=== PATIENT | male | born 1950 | race Two or more races ===

== ENCOUNTER 2020-06-22 13:59 | Outpatient (CLI) | payer MEDICARE ==
[2020-06-22 15:53] LABS: BASOPHILS # (AUTO) 0.1 /CMM (0.0-0.2); EOSINOPHILS % (AUTO) 1.2 % (0.0-6.0); HEMATOCRIT 38 % (39-51); HEMOGLOBIN 12.4 g/dL (13.5-17.5); LYMPHOCYTES # (AUTO) 0.9 /CMM (0.8-4.8); LYMPHOCYTES % (AUTO) 11.4 % (20.0-44.0); MEAN CORPUSCULAR HGB CONC 32 g/dl (31.0-36.0); MEAN CORPUSCULAR VOLUME 85 fL (80-96); MONOCYTES # (AUTO) 0.5 /CMM (0.1-1.30); MONOCYTES % (AUTO) 6.3 % (2.0-12.0); NEUTROPHILS # (AUTO) 6.2 /CMM (1.8-8.9); NEUTROPHILS % (AUTO) 80.1 % (43.0-81.0); PLATELET COUNT (AUTO) 257 /CMM (150-450); RED BLOOD CELL COUNT(AUTO) 4.53 MIL/uL (4.5-6.0); WHITE BLOOD COUNT (AUTO) 7.7 K/uL (4.3-11.0)
[2020-06-22 16:01] LABS: ALANINE AMINOTRANSFERASE 15 U/L (12-78); ALBUMIN 3.3 g/dL (3.4-5.0); ALKALINE PHOSPHATASE 92 U/L (46-116); ASPARTATE AMINOTRANSFERASE 11 U/L (15-37); BILIRUBIN,TOTAL 0.3 mg/dL (0.2-1.0); CALCIUM, SERUM 7.8 mg/dL (8.5-10.1); CARBON DIOXIDE 23 mmol/L (21-32); CHLORIDE 102 mmol/L (98-107); GLUCOSE 81 mg/dL (74-106); MAGNESIUM 1.9 mg/dL (1.8-2.4); PHOSPHORUS 4.3 mg/dL (2.5-4.9); SODIUM SERUM 136 mmol/L (136-145); TOTAL PROTEIN, SERUM 7.2 g/dL (6.4-8.2); UREA NITROGEN, BLOOD 37 mg/dL (7-18)
== END 2020-06-22 23:59 | disposition home or self-care (01) ==
LOC: MSC 13:59
PROVIDERS: ATTEND Internal Medicine
DX: I13.0 Hypertensive heart and chronic kidney disease with heart failure and stage 1 through stage 4 chronic kidney disease, or unspecified chronic kidney disease (principal); E11.22 Type 2 diabetes mellitus with diabetic chronic kidney disease; N17.9 Acute kidney failure, unspecified; N18.9 Chronic kidney disease, unspecified; I50.9 Heart failure, unspecified; Z94.0 Kidney transplant status; Z79.4 Long term (current) use of insulin; Z79.84 Long term (current) use of oral hypoglycemic drugs; G47.00 Insomnia, unspecified; F32.9 Major depressive disorder, single episode, unspecified; K58.1 Irritable bowel syndrome with constipation; I73.9 Peripheral vascular disease, unspecified; E78.5 Hyperlipidemia, unspecified; F41.8 Other specified anxiety disorders; G62.9 Polyneuropathy, unspecified; G25.0 Essential tremor; G47.30 Sleep apnea, unspecified; K21.9 Gastro-esophageal reflux disease without esophagitis; Z79.899 Other long term (current) drug therapy
CPT/HCPCS: 36415; 71045; 80053; 83735; 84100; 85025; G0463

== ENCOUNTER 2020-07-13 13:50 | Outpatient (CLI) | payer MEDICAID, MEDICARE ==
[2020-07-13 15:09] LABS: BASOPHILS % (AUTO) 0.6 % (0.0-2.0); EOSINOPHILS % (AUTO) 1.4 % (0.0-6.0); HEMATOCRIT 38 % (39-51); HEMOGLOBIN 12.1 g/dL (13.5-17.5); LYMPHOCYTES % (AUTO) 14.4 % (20.0-44.0); MEAN CORPUSCULAR HGB CONC 32 g/dl (31.0-36.0); MEAN CORPUSCULAR VOLUME 86 fL (80-96); MONOCYTES # (AUTO) 0.5 /CMM (0.1-1.30); MONOCYTES % (AUTO) 6.8 % (2.0-12.0); NEUTROPHILS # (AUTO) 5.3 /CMM (1.8-8.9); NEUTROPHILS % (AUTO) 76.8 % (43.0-81.0); PLATELET COUNT (AUTO) 303 /CMM (150-450); RED BLOOD CELL COUNT(AUTO) 4.45 MIL/uL (4.5-6.0); WHITE BLOOD COUNT (AUTO) 6.9 K/uL (4.3-11.0)
[2020-07-13 15:47] LABS: C-REACTIVE PROTEIN 2.1 mg/dL (0.0-0.9)
[2020-07-13 16:25] LABS: ALANINE AMINOTRANSFERASE 12 U/L (12-78); ALBUMIN 3.2 g/dL (3.4-5.0); ALKALINE PHOSPHATASE 109 U/L (46-116); ASPARTATE AMINOTRANSFERASE 10 U/L (15-37); BILIRUBIN,TOTAL 0.3 mg/dL (0.2-1.0); CALCIUM, SERUM 8.6 mg/dL (8.5-10.1); CARBON DIOXIDE 22 mmol/L (21-32); CHLORIDE 102 mmol/L (98-107); CREATININE 2.7 mg/dL (0.6-1.3); GLUCOSE 155 mg/dL (74-106); POTASSIUM 5.3 mmol/L (3.5-5.1); SODIUM SERUM 139 mmol/L (136-145); TOTAL PROTEIN, SERUM 7.5 g/dL (6.4-8.2); UREA NITROGEN, BLOOD 62 mg/dL (7-18)
== END 2020-07-13 23:59 | disposition home or self-care (01) ==
LOC: MSC 13:50
PROVIDERS: ATTEND Internal Medicine
DX: R06.00 Dyspnea, unspecified (principal); E11.22 Type 2 diabetes mellitus with diabetic chronic kidney disease; I13.0 Hypertensive heart and chronic kidney disease with heart failure and stage 1 through stage 4 chronic kidney disease, or unspecified chronic kidney disease; N17.9 Acute kidney failure, unspecified; N18.9 Chronic kidney disease, unspecified; I50.9 Heart failure, unspecified; Z94.0 Kidney transplant status; Z79.4 Long term (current) use of insulin; Z79.84 Long term (current) use of oral hypoglycemic drugs; G47.00 Insomnia, unspecified; F32.9 Major depressive disorder, single episode, unspecified; K59.00 Constipation, unspecified; E11.40 Type 2 diabetes mellitus with diabetic neuropathy, unspecified; E78.5 Hyperlipidemia, unspecified; G25.0 Essential tremor
CPT/HCPCS: 36415; 80053; 83036; 85025; 85652; 86140; G0463

== ENCOUNTER 2020-08-13 08:44 | Outpatient (CLI) | payer MEDICARE ==
[2020-08-13 10:00] LABS: BASOPHILS % (AUTO) 0.5 % (0.0-2.0); EOSINOPHILS % (AUTO) 0.8 % (0.0-6.0); HEMATOCRIT 37 % (39-51); HEMOGLOBIN 11.9 g/dL (13.5-17.5); LYMPHOCYTES # (AUTO) 0.8 /CMM (0.8-4.8); LYMPHOCYTES % (AUTO) 16.2 % (20.0-44.0); MEAN CORPUSCULAR HGB CONC 32 g/dl (31.0-36.0); MEAN CORPUSCULAR VOLUME 83 fL (80-96); MONOCYTES # (AUTO) 0.5 /CMM (0.1-1.30); MONOCYTES % (AUTO) 8.7 % (2.0-12.0); NEUTROPHILS # (AUTO) 3.9 /CMM (1.8-8.9); NEUTROPHILS % (AUTO) 73.8 % (43.0-81.0); PLATELET COUNT (AUTO) 256 /CMM (150-450); RED BLOOD CELL COUNT(AUTO) 4.48 MIL/uL (4.5-6.0); WHITE BLOOD COUNT (AUTO) 5.2 K/uL (4.3-11.0)
[2020-08-13 10:32] LABS: ALANINE AMINOTRANSFERASE 12 U/L (12-78); ALBUMIN 2.8 g/dL (3.4-5.0); ALKALINE PHOSPHATASE 93 U/L (46-116); ASPARTATE AMINOTRANSFERASE 13 U/L (15-37); BILIRUBIN,TOTAL 0.3 mg/dL (0.2-1.0); CALCIUM, SERUM 8.1 mg/dL (8.5-10.1); CARBON DIOXIDE 19 mmol/L (21-32); CHLORIDE 102 mmol/L (98-107); CREATININE 2.8 mg/dL (0.6-1.3); GLUCOSE 182 mg/dL (74-106); POTASSIUM 4.8 mmol/L (3.5-5.1); SODIUM SERUM 135 mmol/L (136-145); TOTAL PROTEIN, SERUM 7.1 g/dL (6.4-8.2); UREA NITROGEN, BLOOD 65 mg/dL (7-18)
== END 2020-08-13 23:59 | disposition home or self-care (01) ==
LOC: LAB 08:44
PROVIDERS: ATTEND Internal Medicine
DX: E11.9 Type 2 diabetes mellitus without complications (principal); E78.5 Hyperlipidemia, unspecified; Z94.0 Kidney transplant status
CPT/HCPCS: 36415; 80053-TC; 80158; 85025-TC

== ENCOUNTER 2020-08-24 09:42 | Outpatient (CLI) | payer MEDICARE ==
[2020-08-24] MEDS ORDERED: PRED5TAB PO (14:00)
[2020-08-24] MEDS ORDERED: ALBU18HF2 INH (14:00)
[2020-08-24] MEDS ORDERED: LOSA25TA27 PO (14:00)
[2020-08-24] MEDS ORDERED: MYCO250C8 PO (14:00)
[2020-08-24] MEDS ORDERED: PRIM50TA27 PO (14:00)
[2020-08-24] MEDS ORDERED: TRAZ-252 PO (14:00)
[2020-08-24] MEDS ORDERED: FURO40TA5 PO (14:00)
[2020-08-24] MEDS ORDERED: NIFE60TA73 PO (14:00)
[2020-08-24] MEDS ORDERED: ROSU20TA32 PO (14:00)
[2020-08-24] MEDS ORDERED: CLOP75TA15 PO (14:00)
[2020-08-24] MEDS ORDERED: HYDR-4076 PO (14:00)
[2020-08-24] MEDS ORDERED: CLON1PAT13 TP (14:00)
[2020-08-24] MEDS ORDERED: INSU100I43 SQ (17:56)
[2020-08-24] MEDS ORDERED: INSU100I19 SQ (17:56)
== END 2020-08-24 23:59 | disposition home or self-care (01) ==
LOC: RAD 09:42 → MSC 23:59
PROVIDERS: ATTEND Internal Medicine
DX: R06.00 Dyspnea, unspecified (principal); J90 Pleural effusion, not elsewhere classified; N17.9 Acute kidney failure, unspecified; G47.00 Insomnia, unspecified; F32.9 Major depressive disorder, single episode, unspecified; F41.8 Other specified anxiety disorders; E11.40 Type 2 diabetes mellitus with diabetic neuropathy, unspecified; Z79.4 Long term (current) use of insulin; Z79.84 Long term (current) use of oral hypoglycemic drugs; I11.0 Hypertensive heart disease with heart failure; I50.9 Heart failure, unspecified; Z94.0 Kidney transplant status
CPT/HCPCS: 71046; 82962; G0463

== ENCOUNTER 2020-08-24 12:28 | Inpatient (IN) | payer MEDICARE, OTHER ==
[~2020-08-24] VITALS: Ht 160 cm; Wt 80.4 kg
--- NOTE | 2020-08-24 12:45 | NUR ---
PT C/O SOB X [address] PRINCE'S OFFICE AND WAS SENT HER FOR POSSIBLE ADMISSION. PT IS HYPERTENSIVE MACHINE SHOP SPECIALIST. GOWNED AND PLACED ON MONITOR. PT IS AAOX3 AWAITNG MD PERSAUD.
--- NOTE | 2020-08-24 12:45 | NUR ---
Note [place] in EDM - 08/24/20 at 1405 by MASHA BLOOD PRESSURE STILL ELEVATED ERMD AWARE. MEDICATED ORDERED. SEE EMAR.
--- NOTE | 2020-08-24 12:52 | NUR ---
DR GEORGES AT BEDSIDE FOR EVAL.
--- NOTE | 2020-08-24 13:09 | NUR ---
RADIOLOGY AT BEDSIDE FOR CHEST XRAY.
[2020-08-24 13:35] LABS: BASOPHILS # (AUTO) 0.1 /CMM (0.0-0.2); EOSINOPHILS % (AUTO) 4.2 % (0.0-6.0); HEMATOCRIT 36 % (39-51); HEMOGLOBIN 11.5 g/dL (13.5-17.5); LYMPHOCYTES # (AUTO) 1.3 /CMM (0.8-4.8); LYMPHOCYTES % (AUTO) 19.1 % (20.0-44.0); MEAN CORPUSCULAR HGB CONC 32 g/dl (31.0-36.0); MEAN CORPUSCULAR VOLUME 83 fL (80-96); MONOCYTES # (AUTO) 0.6 /CMM (0.1-1.30); MONOCYTES % (AUTO) 8.9 % (2.0-12.0); NEUTROPHILS # (AUTO) 4.4 /CMM (1.8-8.9); NEUTROPHILS % (AUTO) 66.8 % (43.0-81.0); PLATELET COUNT (AUTO) 285 /CMM (150-450); RED BLOOD CELL COUNT(AUTO) 4.39 MIL/uL (4.5-6.0); WHITE BLOOD COUNT (AUTO) 6.6 K/uL (4.3-11.0)
[2020-08-24] MEDS ORDERED: LABETALOL HCL IV 100MG VIAL ONE (13:56)
[2020-08-24] MEDS ORDERED: MYCO250C8 PO (14:00)
[2020-08-24] MEDS ORDERED: LABETALOL HCL IV 100MG VIAL IV ONE (14:00)
[2020-08-24] MEDS ORDERED: CLON1PAT13 TP (14:00)
[2020-08-24] MEDS ORDERED: LOSA25TA27 PO (14:00)
[2020-08-24] MEDS ORDERED: ROSU20TA32 PO (14:00)
[2020-08-24] MEDS ORDERED: PRIM50TA27 PO (14:00)
[2020-08-24] MEDS ORDERED: ALBU18HF2 INH (14:00)
[2020-08-24] MEDS ORDERED: FURO40TA5 PO (14:00)
[2020-08-24] MEDS ORDERED: CLOP75TA15 PO (14:00)
[2020-08-24] MEDS ORDERED: TRAZ-252 PO (14:00)
[2020-08-24] MEDS ORDERED: PRED5TAB PO (14:00)
[2020-08-24] MEDS ORDERED: NIFE60TA73 PO (14:00)
[2020-08-24] MEDS ORDERED: HYDR-4076 PO (14:00)
--- NOTE | 2020-08-24 14:02 | NUR ---
BLOOD PRESSURE STILL ELEVATED ERMD AWARE. MEDICATED ORDERED. SEE EMAR.
[2020-08-24 14:16] LABS: CALCIUM, SERUM 8.1 mg/dL (8.5-10.1); CARBON DIOXIDE 24 mmol/L (21-32); CHLORIDE 102 mmol/L (98-107); CREATININE 2.4 mg/dL (0.6-1.3); GLUCOSE 127 mg/dL (74-106); POTASSIUM 5.5 mmol/L (3.5-5.1); SODIUM SERUM 137 mmol/L (136-145); UREA NITROGEN, BLOOD 45 mg/dL (7-18)
--- NOTE | 2020-08-24 14:30 | NUR ---
CALLED DR. BOO FOR ADMISSION.
[2020-08-24 14:31] LABS: B-TYPE NATRIURETIC PEPTIDE 1663 PG/ML (0-125)
[2020-08-24] MEDS ORDERED: FUROSEMIDE 40 MG/4 ML VIAL ONE (14:57)
[2020-08-24] MEDS ORDERED: FUROSEMIDE 40 MG/4 ML VIAL IV ONE (15:00)
[2020-08-24] MEDS ORDERED: ACETAMINOPHEN 325 MG TABLET PO PRN (15:00)
[2020-08-24] MEDS ORDERED: MAG HYDROX/AL HYDROX/SIMETH 30 ML UDC PO PRN (15:00)
[2020-08-24] MEDS ORDERED: ONDANSETRON HCL/PF 4 MG/2 ML VIAL IVP PRN (15:00)
[2020-08-24] MEDS ORDERED: Z GUARD REMEDY 2 OZ OINT TP PRN (15:00)
[2020-08-24] MEDS ORDERED: MAGNESIUM HYDROXIDE 30 ML UDC PO PRN (15:00)
--- NOTE | 2020-08-24 15:01 | NUR ---
CALLED NURSING SUP FOR TELE BED.
[2020-08-24 15:36] LABS: ALBUMIN 2.9 g/dL (3.4-5.0); BILIRUBIN,DIRECT 0.1 mg/dL (0.0-0.2); BILIRUBIN,TOTAL 0.2 mg/dL (0.2-1.0); TOTAL PROTEIN, SERUM 7.5 g/dL (6.4-8.2)
--- NOTE | 2020-08-24 15:42 | NUR ---
RAPID COVID RESULT=NEGATIVE
--- NOTE | 2020-08-24 15:52 | NUR ---
REPORT GIVEN TO ALEX. PT AWAITING TRANSFER TO FLOOR.
--- NOTE | 2020-08-24 16:26 | NUR ---
RECEIVED PATIENT FROM ER. NO ACUTE DISTRESS NOTED. PATIENT ALERT & ORIENTED X4. NO COMPLAINTS OF PAIN AT THIS TIME. PATIENT ON ROOM AIR, SATURATING WELL, BREATHING EVEN AND UNLABORED. PATIENT ON EDITING CLERK, NORMAL SINUS RHYTHM NOTED WITH HEART RATE IN 80S. PATIENT RIGHT ANTECUBITAL IV ACCESS INTACT, PATENT, FLUSHED WELL. PATIENT SAFETY MEASURES MAINTAINED. CALL LIGHT WITHIN REACH. WILL CONTINUE TO MONITOR. ADMITTING VITAL SIGNS- TEMPERATURE OF 97.4, HEART RATE 87, RESPIRATIONS 20, O2 SATURATION 96%, 190/95 BLOOD PRESSURE. PATIENT BLOOD PRESSURE IN 180S-190S IN ER. DOCTOR ORDERED SCHEDULED BUMEX AND HYDRALAZINE. ADMINISTERED ORDERED. WILL CONTINUE TO MONITOR.
[2020-08-24] MEDS: BUMETANIDE INJ 0.25 MG/ML VIAL IV SCH (16:29)
[2020-08-24] MEDS: hydrALAZINE HCL 25 MG TABLET PO SCH (16:30)
[2020-08-24] MEDS ORDERED: ALBUTEROL FS 2.5 MG/0.5 ML VIAL.NEB NEB PRN (16:30)
[2020-08-24] MEDS ORDERED: PRIMIDONE 50 MG TABLET PO SCH (17:00)
[2020-08-24] MEDS ORDERED: INSU100I43 SQ (17:56)
[2020-08-24] MEDS ORDERED: INSU100I19 SQ (17:56)
[2020-08-24] MEDS ORDERED: DEXTROSE 50%-WATER 50 ML DISP.SYRIN IV PRN (18:00)
[2020-08-24] MEDS: BLOOD SUGAR DIAGNOSTIC 1 EACH STRIP VI SCH ×2 (18:06→22:13)
[2020-08-24] MEDS: INSULIN REGULAR, HUMAN 100 UNIT/ML 3 ML VIAL SQ PRN (18:09)
[2020-08-24] MEDS ORDERED: MYCOPHENOLATE MOFETIL 250 MG CAPSULE PO SCH (18:30)
--- NOTE | 2020-08-24 18:51 | NUR ---
PT LYING IN BED. NO SIGNS OF DISTRESS, NO SOB, NO PAIN. NO COMPLAINTS. ALL SAFETY PRECAUTIONS PER HOSPITAL POLICY IMPLEMENTED. ALL MEDS GIVEN PER ORDERS. PT VERBALIZED UNDERSTANDING CHF MANAGEMENT. IV PATENT, FLUSHED, DRESSING INTACT, NO REDNESS OR SWELLING. WILL ENDORSE PLAN TO PM RN.
[2020-08-24 20:00] VITALS: BP 138/72
[2020-08-24] MEDS: TRAZODONE 50 MG TABLET PO SCH (21:39)
[2020-08-24] MEDS: ATORVASTATIN 10 MG TABLET PO SCH (21:39)
[2020-08-24] MEDS: MYCOPHENOLATE MOFETIL 250 MG CAPSULE PO SCH (21:39)
[2020-08-24] MEDS: *INSULIN REGULAR(HUMULIN R)HUM 100 UNIT/ML VIAL SQ PRN (21:59)
[2020-08-24] MEDS ORDERED: CLONIDINE HCL 0.1 MG TABLET PO PRN (22:30)
[2020-08-25] VITALS: BP 138/72
--- NOTE | 2020-08-25 03:36 | NUR ---
RN notes Sitting at the side of bed with slight shortness of breath, on room air with saturation of 96-98%. Alert and oriented, verbally able to communicate needs. Patient was anxious as his medication list is not complete. Blood pressure was high at 189/78, Called Md, spoke with Dr. Steele and obtained order for lantus 25 units and clonidine 0.1mg x 1. No complaint of pain or distress. Needs attended, medication given. Kept clean and dry. Will endorse to next shift for continuity of care.
[2020-08-25 04:00] VITALS: BP 169/85
[2020-08-25 06:32] LABS: BASOPHILS # (AUTO) 0.1 /CMM (0.0-0.2); BASOPHILS % (AUTO) 1.1 % (0.0-2.0); EOSINOPHILS % (AUTO) 3.7 % (0.0-6.0); HEMATOCRIT 35 % (39-51); HEMOGLOBIN 11.5 g/dL (13.5-17.5); LYMPHOCYTES # (AUTO) 1.4 /CMM (0.8-4.8); LYMPHOCYTES % (AUTO) 21.2 % (20.0-44.0); MEAN CORPUSCULAR HGB CONC 33 g/dl (31.0-36.0); MEAN CORPUSCULAR VOLUME 82 fL (80-96); MONOCYTES # (AUTO) 0.7 /CMM (0.1-1.30); MONOCYTES % (AUTO) 10.1 % (2.0-12.0); NEUTROPHILS # (AUTO) 4.2 /CMM (1.8-8.9); NEUTROPHILS % (AUTO) 63.9 % (43.0-81.0); PLATELET COUNT (AUTO) 282 /CMM (150-450); RED BLOOD CELL COUNT(AUTO) 4.34 MIL/uL (4.5-6.0); WHITE BLOOD COUNT (AUTO) 6.6 K/uL (4.3-11.0)
--- NOTE | 2020-08-25 07:15 | NUR ---
PT LYING IN BED WITH HOB ELEVATED. RESPIRATIONS EVEN AND UNLABORED. NO SOB, NO CHEST PAIN, NO COMPLAINTS. SKIN WARM AND FLUSHED. ALERT AND ORIENTED X4. IV FLUSHED AND PATENT. DRESSING DRY AND INTACT. NON SLIP SOCKS ON. ALL SAFETY PRECAUTIONS PER HOSPITAL POLICY IMPLEMENTED. WILL MONITOR BP AND URINE OUTPUT, EDEMA, AND BREATH SOUNDS THROUGHOUT DAY.
[2020-08-25 07:22] LABS: CHOLESTEROL 173 mg/dL (<200); HDL CHOLESTEROL 59 mg/dL (40-60); LDL 92 mg/dL (0-99); TRIGLYCERIDES 124 mg/dL (30-150)
[2020-08-25 07:56] LABS: ALANINE AMINOTRANSFERASE 11 U/L (12-78); ALBUMIN 2.7 g/dL (3.4-5.0); ALKALINE PHOSPHATASE 91 U/L (46-116); ASPARTATE AMINOTRANSFERASE 13 U/L (15-37); BILIRUBIN,TOTAL 0.3 mg/dL (0.2-1.0); CALCIUM, SERUM 7.8 mg/dL (8.5-10.1); CARBON DIOXIDE 19 mmol/L (21-32); CHLORIDE 100 mmol/L (98-107); CREATININE 2.2 mg/dL (0.6-1.3); GLUCOSE 99 mg/dL (74-106); POTASSIUM 4.3 mmol/L (3.5-5.1); SODIUM SERUM 135 mmol/L (136-145); TOTAL PROTEIN, SERUM 7.3 g/dL (6.4-8.2); UREA NITROGEN, BLOOD 44 mg/dL (7-18)
[2020-08-25 08:00] VITALS: BP_SYST 192; BP_SYST 194; BP_DIAS 83; BP_DIAS 94
[2020-08-25] MEDS: BLOOD SUGAR DIAGNOSTIC 1 EACH STRIP VI SCH ×4 (08:10→21:30)
[2020-08-25] MEDS: MYCOPHENOLATE MOFETIL 250 MG CAPSULE PO SCH ×2 (08:25→21:28)
[2020-08-25] MEDS: CLOPIDOGREL BISULFATE 75 MG TABLET PO SCH (08:27)
[2020-08-25] MEDS: hydrALAZINE HCL 25 MG TABLET PO SCH ×3 (08:28→16:32)
[2020-08-25] MEDS: BUMETANIDE INJ 0.25 MG/ML VIAL IV SCH (08:28)
[2020-08-25] MEDS ORDERED: LOSARTAN POTASSIUM 25 MG TABLET PO SCH (09:00)
[2020-08-25] MEDS ORDERED: CLONIDINE HCL 0.2MG/24H PTWK 1 EA PATCH TD SCH (09:00)
[2020-08-25] MEDS: CITALOPRAM HYDROBROMIDE 20 MG TABLET PO SCH (09:03)
[2020-08-25] MEDS: predniSONE 5 MG TABLET PO SCH (09:04)
[2020-08-25] MEDS: ATENOLOL 50 MG TABLET PO SCH (09:04)
--- NOTE | 2020-08-25 10:20 | NUR ---
PT REFUSED TO GIVE CYCLOSPORINE HOME MED TO PHARMACY HE WANTS TO KEEP IT IN HIS DRAWERS WITH OTHER BELONGINGS. PT VERBALIZED WANTING TO USE THE PHARMACY PROVIDED CYCLOSPORINE. Addendum: 08/25/20 at 1056 by ALEX JOSHI RN 100MG CYCLOSPORINE, 23 COUNT IN PATIENT BELONGING. REFUSED TO HAND OVER TO PHARMACY FOR DISPENSING. REQUESTS TO KEEP USING PHARMACY PROVIDED CYCLOSPORINE.
[2020-08-25] MEDS: FUROSEMIDE 100 MG/10 ML VIAL IV SCH ×3 (10:40→17:34)
[2020-08-25] MEDS: NITROGLYCERIN 30 GM TUBE TP SCH ×2 (11:37→23:19)
[2020-08-25 12:00] VITALS: BP 194/83
[2020-08-25] MEDS: INSULIN REGULAR, HUMAN 100 UNIT/ML 3 ML VIAL SQ PRN (12:21)
--- NOTE | 2020-08-25 14:31 | NUR ---
BP 159/72. WILL CONTINUE TO MONITOR PT RESPONSE TO BP MEDS AND LASIX AND REPORT TO DR NEEDED.
[2020-08-25 16:00] VITALS: BP 156/78
--- NOTE | 2020-08-25 18:15 | NUR ---
PATIENT REPORTED WATERY STOOL 2X 2 HOURS APART. INFORMED WE WILL MONITOR.
--- NOTE | 2020-08-25 18:42 | NUR ---
RN CLOSING NOTE Patient in bed awake. Calm and relaxed. No signs of distress, On room air tolerating well O2 sat 97%. Patient is AO x4 no co pain or discomfort. Tele monitor reading SR 65. Patient has RAC #20 intact and patent. Blood sugar within normal limits. Vital signs blood pressure managed. No co of SOB or . Activity tolerated well. All due meds given no signs of adverse reaction to medications. Safety measures maintained. Bed locked and on lowest position. Will endorse to sales recruitment specialist nurse for laura.
--- NOTE | 2020-08-25 19:28 | NUR ---
LANDING MAN: RECEIVED PATIENT Patient is awake, sitting up in bed. On room air, denies shortness of breath. Sinus rhythm in the Tele monitor. Patient has medication GENGRAF at bedside, per ADITYA Rascon patient refused to endorse medication to the Pharmacy, patient is A/O x4, stated GENGRAF medication is very expensive and insisted to keep it by himself while in the hosp. Maintained safety.
[2020-08-25 20:19] VITALS: BP 159/85
--- NOTE | 2020-08-25 20:19 | NUR ---
VS Entered VS by mistake under ADITYA Durán account.
[2020-08-25] MEDS: *INSULIN REGULAR(HUMULIN R)HUM 100 UNIT/ML VIAL SQ PRN (21:13)
[2020-08-25] MEDS: ATORVASTATIN 10 MG TABLET PO SCH (21:21)
[2020-08-25] MEDS: NIFEdipine XL (30MG) 30 MG TAB PO SCH (21:23)
[2020-08-25] MEDS: TRAZODONE 50 MG TABLET PO SCH (22:00)
[2020-08-25] MEDS: INSULIN GLARGINE, 100 UNIT/ML CARTRIDGE SQ SCH (23:31)
--- NOTE | 2020-08-26 00:03 | NUR ---
REFUSED TRAZODONE Patient refused Trazodone for sleep, per patient does not help. Requested Ativan instead, per patient he's taking at home for sleep and works better. Notified AMRIT Canela with new orders placed.
[2020-08-26 00:07] VITALS: BP 154/79
[2020-08-26] MEDS: LORAZEPAM 0.5 MG TABLET PO PRN ×2 (00:18→21:27)
[2020-08-26 04:31] VITALS: BP 154/56
--- NOTE | 2020-08-26 06:25 | NUR ---
CREAM BEATER: END OF SHIFT REPORT Patient in bed, slept well with PRN Ativan. Sinus Mahad in the Tele monitor. On room air, denies shortness of breath. Independent with ADL's, denies pain, no other complaints. Plan for cont. hosp. if still dyspneic per Cardio plan Lexiscan on Mon. Will endorse to oncoming RN.
--- NOTE | 2020-08-26 07:15 | NUR ---
RN OPENING NOTE Received patient awake in bed appears calm and relaxed no signs of distress. On room air tolerating well. AO X4 able to communicate needs verbally. Tele reading SB 50-60s. Patient ambulatory. R AC #20 flushes well. Bilateral lower extremities edema noted no co pain. Safety measures maintained. Call light within reach. Bed locked and on lowest position. Will cont to monitor.
[2020-08-26 07:17] LABS: BASOPHILS % (AUTO) 0.7 % (0.0-2.0); EOSINOPHILS % (AUTO) 3.3 % (0.0-6.0); HEMATOCRIT 34 % (39-51); HEMOGLOBIN 11.1 g/dL (13.5-17.5); LYMPHOCYTES # (AUTO) 1.8 /CMM (0.8-4.8); LYMPHOCYTES % (AUTO) 28.2 % (20.0-44.0); MEAN CORPUSCULAR HGB CONC 32 g/dl (31.0-36.0); MEAN CORPUSCULAR VOLUME 81 fL (80-96); MONOCYTES # (AUTO) 0.7 /CMM (0.1-1.30); MONOCYTES % (AUTO) 11.7 % (2.0-12.0); NEUTROPHILS # (AUTO) 3.6 /CMM (1.8-8.9); NEUTROPHILS % (AUTO) 56.1 % (43.0-81.0); PLATELET COUNT (AUTO) 277 /CMM (150-450); RED BLOOD CELL COUNT(AUTO) 4.27 MIL/uL (4.5-6.0); WHITE BLOOD COUNT (AUTO) 6.4 K/uL (4.3-11.0)
[2020-08-26 08:00] VITALS: BP 106/53
[2020-08-26] MEDS: BLOOD SUGAR DIAGNOSTIC 1 EACH STRIP VI SCH ×4 (08:01→21:17)
[2020-08-26] MEDS: INSULIN REGULAR, HUMAN 100 UNIT/ML 3 ML VIAL SQ PRN ×4 (08:02→21:22)
[2020-08-26 08:37] LABS: ALANINE AMINOTRANSFERASE 14 U/L (12-78); ALBUMIN 2.5 g/dL (3.4-5.0); ALKALINE PHOSPHATASE 81 U/L (46-116); ASPARTATE AMINOTRANSFERASE 13 U/L (15-37); BILIRUBIN,TOTAL 0.3 mg/dL (0.2-1.0); CALCIUM, SERUM 7.2 mg/dL (8.5-10.1); CARBON DIOXIDE 24 mmol/L (21-32); CHLORIDE 98 mmol/L (98-107); CREATININE 2.6 mg/dL (0.6-1.3); GLUCOSE 174 mg/dL (74-106); MAGNESIUM 1.6 mg/dL (1.8-2.4); PHOSPHORUS 5.6 mg/dL (2.5-4.9); POTASSIUM 3.7 mmol/L (3.5-5.1); SODIUM SERUM 134 mmol/L (136-145); TOTAL PROTEIN, SERUM 6.5 g/dL (6.4-8.2); UREA NITROGEN, BLOOD 54 mg/dL (7-18)
[2020-08-26] MEDS: hydrALAZINE HCL 25 MG TABLET PO SCH ×3 (09:21→17:00)
[2020-08-26] MEDS: ATENOLOL 50 MG TABLET PO SCH (09:22)
[2020-08-26] MEDS: CITALOPRAM HYDROBROMIDE 20 MG TABLET PO SCH (09:22)
[2020-08-26] MEDS: NIFEdipine XL (30MG) 30 MG TAB PO SCH ×2 (09:22→17:15)
[2020-08-26] MEDS: CLOPIDOGREL BISULFATE 75 MG TABLET PO SCH (09:26)
[2020-08-26] MEDS: NITROGLYCERIN 30 GM TUBE TP SCH ×2 (09:27→21:24)
--- NOTE | 2020-08-26 09:30 | NUR ---
CONSENT SIGNED FOR BESSY TOMORROW. EXPLAINED NPO AFTER MIDNIGHT. NO COFFEE, TEA, CHOCOLATE, DECAF AFTER 6PM. PATIENT UNDERSTOOD.
[2020-08-26] MEDS: predniSONE 5 MG TABLET PO SCH (09:32)
[2020-08-26] MEDS: MYCOPHENOLATE MOFETIL 250 MG CAPSULE PO SCH ×2 (09:33→21:23)
--- NOTE | 2020-08-26 10:30 | NUR ---
PHARMACY CALLED REG PATIENT'S MAGNESIUM LEVEL. PER DR. BOO DO NOT SUPPLEMENT DUE TO KIDNEY ISSUE.
[2020-08-26 16:00] VITALS: BP 122/59
--- NOTE | 2020-08-26 17:37 | NUR ---
HOLD HYDRALAZINE 100MG FOR DECREASED HR 54 BPM.
--- NOTE | 2020-08-26 18:28 | NUR ---
[facility] CALLED TO INFORM ABOUT PLATELET FUNCTION TEST. [address] BOO WITH NO NEW ORDER AT THIS TIME.
--- NOTE | 2020-08-26 18:58 | NUR ---
RN CLOSING NOTE Patient asleep in bed appears calm and relaxed no signs of distress. On room air tolerating well no co sob or . AO X4 able to communicate needs verbally. Tele reading SR 60s. R AC #20 flushes well. NPO after midnight. No coffee, tea, chocolate or decaf after 6pm. Safety measures maintained. Call light within reach. Bed locked and on lowest position. Will endorse to overnight cashier nurse.
--- NOTE | 2020-08-26 19:30 | NUR ---
RN OPENING NOTE, Patient awake in bed a/o x4 able to verbalize needs and concerns, at room air breathing even and unlabored, no s/s of respiratory distress or any pain/discomfort, SR 70s on tele monitor at this time, R AC #20 patent and intatc, will be NPO after midnight for lexican tomorrow morning , discussed with patient and verbalized understanding as well as no intake of coffee, tea, decaf, or chocolate, safety measures maintained, Call light within reach, Bed locked and on lowest position, will continue to monitor closely.
[2020-08-26 20:00] VITALS: BP 122/63
[2020-08-26] MEDS: INSULIN GLARGINE, 100 UNIT/ML CARTRIDGE SQ SCH (21:20)
[2020-08-26] MEDS: ATORVASTATIN 10 MG TABLET PO SCH (21:24)
[2020-08-26] MEDS: QUETIAPINE FUMARATE 25 MG TABLET PO SCH (21:24)
[2020-08-26] MEDS: TRAZODONE 50 MG TABLET PO SCH (21:27)
--- NOTE | 2020-08-27 00:33 | NUR ---
MEDSURG RN NOTE ENDORSED PT TO NICLOS IN STABLE CONDITION. PT IN BED ASLEEP. BREATHING EVEN AND UNLABORED. NO SOB OR ACUTE DISTRESS NOTED. SRX2 UP. BED IN LOWEST POSITION. CALL LIGHT WITHIN REACH. ALL NEEDS RENDERED.
[2020-08-27] MEDS: QUETIAPINE FUMARATE 25 MG TABLET PO SCH (01:39)
--- NOTE | 2020-08-27 01:39 | NUR ---
MARIELA MISDOSED AT 2230; DOSE WAS ALREADY ADMINISTERED EARLIER AT 2130. VERIFIED THROUGH PREVIOUS NURSE CHIP BURGESS .
[2020-08-27 04:00] VITALS: BP 104/56
[2020-08-27 06:38] LABS: BASOPHILS # (AUTO) 0.1 /CMM (0.0-0.2); BASOPHILS % (AUTO) 0.9 % (0.0-2.0); EOSINOPHILS % (AUTO) 2.8 % (0.0-6.0); HEMATOCRIT 32 % (39-51); HEMOGLOBIN 10.4 g/dL (13.5-17.5); LYMPHOCYTES # (AUTO) 1.9 /CMM (0.8-4.8); MEAN CORPUSCULAR HGB CONC 32 g/dl (31.0-36.0); MEAN CORPUSCULAR VOLUME 82 fL (80-96); MONOCYTES # (AUTO) 0.6 /CMM (0.1-1.30); MONOCYTES % (AUTO) 9.9 % (2.0-12.0); NEUTROPHILS # (AUTO) 3.4 /CMM (1.8-8.9); NEUTROPHILS % (AUTO) 55.4 % (43.0-81.0); PLATELET COUNT (AUTO) 274 /CMM (150-450); RED BLOOD CELL COUNT(AUTO) 3.95 MIL/uL (4.5-6.0); WHITE BLOOD COUNT (AUTO) 6.2 K/uL (4.3-11.0)
--- NOTE | 2020-08-27 07:03 | NUR ---
ANA RN PM CLOSING NOTE PT IN STABLE CONDITION. PT IN BED WITH EYES CLOSED. PER EARLIER THIS AM AROUND 4 AM PT HAS BEEN NPO SINCE MIDNIGHT SCHEDIULED FOR LEXISCAN TODAY WITH DR. DAVEY. BREATHING EVEN AND UNLABORED. NO SOB OR ACUTE DISTRESS NOTED. SRX2 UP. BED IN LOWEST POSITION. CALL LIGHT WITHIN REACH.
[2020-08-27 07:22] LABS: ALANINE AMINOTRANSFERASE 12 U/L (12-78); ALBUMIN 2.4 g/dL (3.4-5.0); ALKALINE PHOSPHATASE 77 U/L (46-116); ASPARTATE AMINOTRANSFERASE 14 U/L (15-37); BILIRUBIN,TOTAL 0.2 mg/dL (0.2-1.0); CALCIUM, SERUM 7.2 mg/dL (8.5-10.1); CARBON DIOXIDE 21 mmol/L (21-32); CHLORIDE 98 mmol/L (98-107); CREATININE 3.3 mg/dL (0.6-1.3); GLUCOSE 123 mg/dL (74-106); MAGNESIUM 1.9 mg/dL (1.8-2.4); PHOSPHORUS 6.7 mg/dL (2.5-4.9); SODIUM SERUM 133 mmol/L (136-145); TOTAL PROTEIN, SERUM 6.3 g/dL (6.4-8.2); UREA NITROGEN, BLOOD 74 mg/dL (7-18)
--- NOTE | 2020-08-27 07:35 | NUR ---
PT ASLEEP IN BED. HOB ELEVATED. RESPIRATIONS EVEN AND UNLABORED. A/OX4. EASILY AWOKEN W VERBAL CUES. SKIN WARM AND FLUSHED. REMAINS NPO FOR LEXISCAN. IV PATENT AND DRESSING INTACT W NO REDNESS OR SWELLING ON RAC. WILL CT NPO AND MONITOR BP IN RESPONSE TO DIURESIS. WILL CONTINUE PLAN OF CARE PRESCRIBED AND MONITOR ACCORDINGLY. HOB ELEVATED, BED LOCKED, LOW, CALL LIGHT WITHIN REACH, RAILS UP X2, ALL HOSPITAL SAFETY PRECAUTIONS IMPLEMENTED PER POLICY.
[2020-08-27] MEDS ORDERED: REGADENOSON 0.4 MG/5 ML DISP.SYRIN IVP ONE (08:00)
[2020-08-27] MEDS: BLOOD SUGAR DIAGNOSTIC 1 EACH STRIP VI SCH ×3 (08:09→17:35)
[2020-08-27] MEDS: hydrALAZINE HCL 25 MG TABLET PO SCH ×3 (09:00→16:39)
[2020-08-27] MEDS: ATENOLOL 50 MG TABLET PO SCH (09:00)
[2020-08-27] MEDS ORDERED: CITALOPRAM HYDROBROMIDE 20 MG TABLET PO SCH (09:00)
[2020-08-27] MEDS: NIFEdipine XL (30MG) 30 MG TAB PO SCH ×2 (09:00→16:41)
--- NOTE | 2020-08-27 09:15 | NUR ---
PT TAKEN TO [facility] VIA WHEELCHAIR WITH TECH. NPO STATUS FOLLOWED.
--- NOTE | 2020-08-27 10:15 | NUR ---
PT RETURNED FROM [facility] VIA WHEELCHAIR BY TECH. TOLERATING WELL.
--- NOTE | 2020-08-27 10:45 | NUR ---
PT AM BP MEDICATION HELD PT BP WAS 103/57. RESUMED CARDIAC DIET ORDERED BY
[2020-08-27] MEDS: MYCOPHENOLATE MOFETIL 250 MG CAPSULE PO SCH (10:48)
[2020-08-27] MEDS: predniSONE 5 MG TABLET PO SCH (10:49)
--- NOTE | 2020-08-27 11:10 | NUR ---
PT TAKEN TO [facility] VIA WHEELCHAIR WITH TECH.
--- NOTE | 2020-08-27 12:15 | NUR ---
PT ARRIVED BACK TO UNIT FROM [facility]. VIA WHEELCHAIR ASSISTED BY TECH.
[2020-08-27] MEDS: *INSULIN REGULAR(HUMULIN R)HUM 100 UNIT/ML VIAL SQ PRN ×2 (13:13→17:34)
[2020-08-27 16:00] VITALS: BP 136/68
[2020-08-27 16:41] VITALS: BP 136/68
[2020-08-27] MEDS ORDERED: CITA20TA16 PO (16:45)
[2020-08-27] MEDS ORDERED: HYDR-4076 PO (16:45)
[2020-08-27] MEDS ORDERED: QUET25TA PO (16:45)
[2020-08-27] MEDS ORDERED: CLON1PAT2 TD (16:45)
[2020-08-27] MEDS ORDERED: CYCL25CA3 PO (16:45)
--- NOTE | 2020-08-27 18:35 | NUR ---
PT DISCHARGED HOME. APPROVED TO DRIVE P[facility]AL VEHICLE BY [facility]. FAMILY NOTIFIED AND VERBALIZED UNDERSTANDING. PT ALERT AND ORIENTED X4, INDEPENDENT WITH AMBULATION, VS WNL. ALL BELONGING BROUGHT WITH PATIENT AND DC INSTRUCTIONS. PT DENIED QUESTIONS OR CONCERNS. ESCORTED TO CAR. IV REMOVED PRIOR AND TOLERATED WELL.
[2020-08-30] MEDS ORDERED: CLONIDINE HCL 0.2MG/24H PTWK 1 EA PATCH TD SCH (09:00)
== END 2020-08-27 18:30 | disposition home or self-care (01) | DRG 280 ==
LOC: ER 12:32 → TELE1 15:48 → MEDSG1 08-26 08:04
PROVIDERS: ADMIT Internal Medicine; ATTEND Internal Medicine
DX: I13.0 Hypertensive heart and chronic kidney disease with heart failure and stage 1 through stage 4 chronic kidney disease, or unspecified chronic kidney disease (principal); I50.33 Acute on chronic diastolic (congestive) heart failure; I21.A1 Myocardial infarction type 2; N18.4 Chronic kidney disease, stage 4 (severe); N17.9 Acute kidney failure, unspecified; T86.12 Kidney transplant failure; E11.22 Type 2 diabetes mellitus with diabetic chronic kidney disease; Z79.02 Long term (current) use of antithrombotics/antiplatelets; Z79.899 Other long term (current) drug therapy; I25.10 Atherosclerotic heart disease of native coronary artery without angina pectoris; Z79.51 Long term (current) use of inhaled steroids; E78.5 Hyperlipidemia, unspecified; D64.9 Anemia, unspecified; Y83.0 Surgical operation with transplant of whole organ as the cause of abnormal reaction of the patient, or of later complication, without mention of misadventure at the time of the procedure; Y92.009 Unspecified place in unspecified non-institutional (private) residence as the place of occurrence of the external cause; Z79.4 Long term (current) use of insulin; E87.5 Hyperkalemia; F32.9 Major depressive disorder, single episode, unspecified
CPT/HCPCS: 36415; 71045-TC; 71250-TC; 76770-TC; 80048-TC; 80053-TC; 80061-TC; 80076-TC; 82962-TC; 83735-TC; 83880; 84100-TC; 84484-TC; 85025-TC; 85730-TC; 87081-TC; 93307-TC; 93970-TC; 97116-TC; 97530-TC; A9502; C9803-CS; G0378; J1815; J1940; J2785; J3490; J7512; J7515; J7517

== ENCOUNTER 2020-11-28 09:08 | Outpatient (CLI) | payer MEDICARE, OTHER ==
[~2020-11-28 09:08] MED LIST: ALBU18HF2 INH; CITA20TA16 PO; CLON1PAT13 TP; CLON1PAT2 TD; CLOP75TA15 PO; CYCL25CA3 PO; FURO40TA5 PO; HYDR-4076 PO; INSU100I19 SQ; INSU100I43 SQ; LOSA25TA27 PO; MYCO250C8 PO; NIFE60TA73 PO; PRED5TAB PO; PRIM50TA27 PO; QUET25TA PO; ROSU20TA32 PO; TRAZ-252 PO
[2020-11-28 10:40] LABS: BASOPHILS # (AUTO) 0.2 /CMM (0.0-0.2); BASOPHILS % (AUTO) 2.7 % (0.0-2.0); EOSINOPHILS % (AUTO) 2.7 % (0.0-6.0); HEMATOCRIT 40 % (39-51); HEMOGLOBIN 12.6 g/dL (13.5-17.5); LYMPHOCYTES # (AUTO) 1.5 /CMM (0.8-4.8); LYMPHOCYTES % (AUTO) 24.8 % (20.0-44.0); MEAN CORPUSCULAR HGB CONC 32 g/dl (31.0-36.0); MEAN CORPUSCULAR VOLUME 83 fL (80-96); MONOCYTES # (AUTO) 0.6 /CMM (0.1-1.30); MONOCYTES % (AUTO) 9.1 % (2.0-12.0); NEUTROPHILS # (AUTO) 3.8 /CMM (1.8-8.9); NEUTROPHILS % (AUTO) 60.7 % (43.0-81.0); PLATELET COUNT (AUTO) 263 /CMM (150-450); RED BLOOD CELL COUNT(AUTO) 4.77 MIL/uL (4.5-6.0); WHITE BLOOD COUNT (AUTO) 6.2 K/uL (4.3-11.0)
[2020-11-28 11:07] LABS: ALANINE AMINOTRANSFERASE 12 U/L (12-78); ALBUMIN 3.7 g/dL (3.4-5.0); ALKALINE PHOSPHATASE 108 U/L (46-116); ASPARTATE AMINOTRANSFERASE 10 U/L (15-37); BILIRUBIN,TOTAL 0.3 mg/dL (0.2-1.0); CALCIUM, SERUM 6.9 mg/dL (8.5-10.1); CARBON DIOXIDE 25 mmol/L (21-32); CHLORIDE 99 mmol/L (98-107); CREATININE 2.5 mg/dL (0.6-1.3); GLUCOSE 198 mg/dL (74-106); PHOSPHORUS 6.1 mg/dL (2.5-4.9); POTASSIUM 4.7 mmol/L (3.5-5.1); SODIUM SERUM 139 mmol/L (136-145); TOTAL PROTEIN, SERUM 8.1 g/dL (6.4-8.2); UREA NITROGEN, BLOOD 56 mg/dL (7-18)
== END 2020-11-28 23:59 | disposition home or self-care (01) ==
LOC: MSC 09:08
PROVIDERS: ATTEND Internal Medicine
DX: R06.00 Dyspnea, unspecified (principal); J90 Pleural effusion, not elsewhere classified; Z94.0 Kidney transplant status; I11.0 Hypertensive heart disease with heart failure; I50.9 Heart failure, unspecified; G47.00 Insomnia, unspecified; F32.9 Major depressive disorder, single episode, unspecified; I73.9 Peripheral vascular disease, unspecified; K59.00 Constipation, unspecified; E78.5 Hyperlipidemia, unspecified; E11.40 Type 2 diabetes mellitus with diabetic neuropathy, unspecified; Z79.84 Long term (current) use of oral hypoglycemic drugs; G47.30 Sleep apnea, unspecified; K21.9 Gastro-esophageal reflux disease without esophagitis; Z79.899 Other long term (current) drug therapy
CPT/HCPCS: 71046; 80053; 80158; 83036; 83735; 84100; 85025; G0463; 36415

== ENCOUNTER → 2020-11-30 | Outpatient (CLI) | payer MEDICARE, OTHER | END | disposition home or self-care (01) | LOC: MSC 14:00 | PROVIDERS: ATTEND Internal Medicine | DX: R53.83 Other fatigue (principal); M54.9 Dorsalgia, unspecified; I10 Essential (primary) hypertension; I50.9 Heart failure, unspecified; E11.9 Type 2 diabetes mellitus without complications; G47.00 Insomnia, unspecified; F32.9 Major depressive disorder, single episode, unspecified; I73.9 Peripheral vascular disease, unspecified; K59.00 Constipation, unspecified; E78.5 Hyperlipidemia, unspecified; F41.9 Anxiety disorder, unspecified; Z79.4 Long term (current) use of insulin; G47.30 Sleep apnea, unspecified; K21.9 Gastro-esophageal reflux disease without esophagitis; Z94.0 Kidney transplant status ==

== ENCOUNTER 2021-02-20 09:03 | Outpatient (CLI) | payer MEDICARE, OTHER ==
[2021-02-20 10:42] LABS: BILIRUBIN,URINE NEGATIVE (NEGATIVE); COLOR,URINE YELLOW (YELLOW); LEUKOCYTE ESTERASE ,URINE NEGATIVE (NEGATIVE); NITRITE, URINE NEGATIVE (NEGATIVE); PROTEIN,URINE 100 mg/dl (NEGATIVE); UGLUCOSE NEGATIVE (NEGATIVE); UROBILINOGEN,URINE 0.2 EU/dL (0.2)
[2021-02-20 10:43] LABS: BASOPHILS # (AUTO) 0.1 /CMM (0.0-0.2); BASOPHILS % (AUTO) 1.3 % (0.0-2.0); EOSINOPHILS % (AUTO) 2.3 % (0.0-6.0); HEMATOCRIT 41 % (39-51); HEMOGLOBIN 12.9 g/dL (13.5-17.5); LYMPHOCYTES # (AUTO) 1.4 /CMM (0.8-4.8); LYMPHOCYTES % (AUTO) 23.3 % (20.0-44.0); MEAN CORPUSCULAR HGB CONC 32 g/dl (31.0-36.0); MEAN CORPUSCULAR VOLUME 83 fL (80-96); MONOCYTES # (AUTO) 0.5 /CMM (0.1-1.30); MONOCYTES % (AUTO) 8.2 % (2.0-12.0); NEUTROPHILS # (AUTO) 3.8 /CMM (1.8-8.9); NEUTROPHILS % (AUTO) 64.9 % (43.0-81.0); PLATELET COUNT (AUTO) 249 /CMM (150-450); RED BLOOD CELL COUNT(AUTO) 4.89 MIL/uL (4.5-6.0); WHITE BLOOD COUNT (AUTO) 5.9 K/uL (4.3-11.0)
[2021-02-20 10:51] LABS: BACTERIA,URINE Rare /HPF (None Seen); RBC,URINE 0-3 /HPF (0-2); SQUAMOUS EPITHELIAL CELL,UR Rare /HPF (None Seen); WBC,URINE 0-2 /HPF (0-3)
[2021-02-20 11:03] LABS: CREATININE, URINE 63.3 MG/DL (30.0-125.0); URINE TOTAL PROTEIN 96.6 mg/dL (0-11.9)
[2021-02-20 11:07] LABS: ALANINE AMINOTRANSFERASE 16 U/L (12-78); ALBUMIN 3.8 g/dL (3.4-5.0); ALKALINE PHOSPHATASE 104 U/L (46-116); ASPARTATE AMINOTRANSFERASE 9 U/L (15-37); BILIRUBIN,TOTAL 0.3 mg/dL (0.2-1.0); CALCIUM, SERUM 6.6 mg/dL (8.5-10.1); CARBON DIOXIDE 23 mmol/L (21-32); CHLORIDE 98 mmol/L (98-107); CREATININE 2.7 mg/dL (0.6-1.3); GLUCOSE 121 mg/dL (74-106); MAGNESIUM 2.2 mg/dL (1.8-2.4); PHOSPHORUS 6.4 mg/dL (2.5-4.9); SODIUM SERUM 137 mmol/L (136-145); UREA NITROGEN, BLOOD 66 mg/dL (7-18)
== END 2021-02-20 23:59 | disposition home or self-care (01) ==
LOC: MSC 09:03
PROVIDERS: ATTEND Internal Medicine
DX: R53.83 Other fatigue (principal); Z94.0 Kidney transplant status; I11.0 Hypertensive heart disease with heart failure; I50.9 Heart failure, unspecified; Z87.891 Personal history of nicotine dependence; Z87.09 Personal history of other diseases of the respiratory system; G47.00 Insomnia, unspecified; F32.9 Major depressive disorder, single episode, unspecified; I73.9 Peripheral vascular disease, unspecified; K59.00 Constipation, unspecified; E78.5 Hyperlipidemia, unspecified; G62.9 Polyneuropathy, unspecified; E11.9 Type 2 diabetes mellitus without complications; Z79.4 Long term (current) use of insulin; G47.30 Sleep apnea, unspecified; Z79.51 Long term (current) use of inhaled steroids; Z79.52 Long term (current) use of systemic steroids; Z79.899 Other long term (current) drug therapy
CPT/HCPCS: 36415; 80053; 80158; 81001; 82570; 83735; 84100; 84155; 85025; G0463